=== PATIENT | female | born 1980 | race Hispanic/Latino ===

== ENCOUNTER 2017-11-14 08:53 | Emergency (ER) | payer SELFPAY ==
[2017-11-14 09:21] LABS: Bilirubin Negative (Negative); Blood, Urine Moderate (Negative); Clarity CLEAR (Clear); Glucose, Urine (Dipstick) Negative (Negative); Leukocyte Trace (Negative); Nitrite Negative (Negative); Protein, Urine (Dipstick) Negative (Neg-Trace); Specific Gravity, Urine 1.013 (1.002-1.036)
[2017-11-14 09:23] LABS: Bacteria/HPF None Seen HPF (None Seen); Hyaline Casts/LPF 0-3 HYALINE CAST LPF (0-3 Hyaline); Pathc Cast-AUWi Flag 0.14 (0-2.49); Pregnancy Test - Urine (BHCG) POSITIVE (Negative); Pregu Control Background? CLEAR/WHITE (CLR/WHITE); Pregu Control Bar Appear? YES (CONTROL BAR); RBC/HPF 0-3 HPF (0-3); Specific Gravity 1.013 (1.002-1.036); Squamous Epithelial 0-3 HPF (0-3); WBC/HPF 0-3 HPF (0-3)
[2017-11-14] MEDS ORDERED: Ondansetron ODT 4 MG TAB ONE (09:23)
[2017-11-14 09:33] LABS: #Lymphocytes 1.3 thou/uL (1.20-3.40); #Monocytes 0.4 thou/uL (0.11-0.59); #Neutrophils 4.8 thou/uL (1.40-6.50); %Basophils 0.1 % (0.0-1.0); %Eosinophils 0.6 % (0.0-10.0); %Lymphocytes 19.8 % (21.0-51.0); %Monocytes 6.6 % (0.0-10.0); %Neutrophils 72.9 % (42.0-75.0); Hemoglobin 13.4 g/dL (12.0-16.0); Mean Corpuscular HGB CONC 35.1 g/dL (32.0-36.0); Mean Corpuscular Volume 85.4 fL (78.0-98.0); Mean Platelet Volume 6.2 fL (7.4-10.4); Platelet Count 236 thou/uL (130-400); RBC Distribution Width 11.8 % (11.5-14.5); Red Blood Cell (RBC) Count 4.48 mill/uL (4.20-5.40); White Blood Cell (WBC) Count 6.6 thou/uL (4.8-10.8)
[2017-11-14 10:01] LABS: ALT (SGPT) 15 U/L (8-55); AST (SGOT) 11 U/L (5-34); Albumin 4.3 g/dL (3.5-5.0); Alkaline Phosphatase 52 U/L (40-150); Anion Gap 12 mmol/L (10-20); BUN (Urea Nitrogen) 8 mg/dL (7.0-18.7); Bilirubin, Total 0.5 mg/dL (0.2-1.2); Calc. Creatinine Clearance 0 mL/min (70-130); Calcium 9.8 mg/dL (7.8-10.44); Carbon Dioxide 23 mmol/L (22-29); Chloride 108 mmol/L (98-107); Estimated GFR-MDRD Greater than 90; Globulin 2.8 g/dL (2.4-3.5); Glucose 102 mg/dL (70-105); Lipase 29 U/L (8-78); Potassium 3.5 mmol/L (3.5-5.1); Protein, Total 7.1 g/dL (6.0-8.3); Sodium 139 mmol/L (136-145)
--- NOTE | 2017-11-14 10:52 | ULT ---
FIRST TRIMESTER OBSTETRICAL ULTRASOUND: Date: 11/14/17 INDICATION: with abdominal pain. FINDINGS: There is a single intrauterine gestation present with associated yolk sac. No pole is identifie d. The gestational sac measures 1.34 cm, giving an estimated gestational age of 6 weeks/1 day. The yo lk sac measured 3.4 mm. Uterus measured 11.0 x 5.6 x 6.0 cm. Left ovary is visualized and measures 3. 8 x 1.6 x 1.4 cm. Normal flow is seen to the left ovary. The right adnexa is not well seen. IMPRESSION: 1. Single intrauterine gestational sac and yolk sac identified. pole is not identified. Recomm end correlation with beta HCG and clinical follow-up. No evidence of a subchorionic hemorrhage is abiel ssly noted. No free fluid is demonstrated. 2. Average gestational age by ultrasound is 6 weeks and 1 day, with estimated date of delivery of . 3. Nonvisualization of the right ovary. Visualized uterus and left ovary appear normal. ADDENDUM: Additional transabdominal images were performed later, which demonstrated the right ovary measuring 2 .0 x 2.5 x 2.0 cm, with normal vascular flow. The left ovary measured 2.8 x 1.6 x 1.4 cm on this repe at evaluation. There is normal vascular flow to the left ovary. No free fluid is evident. The gestat ional sac is again noted. POS: [facility]
--- NOTE | 2017-11-14 12:33 | CON ---
DATE OF CONSULTATION: 11/14/2017 LOCATION: Emergency Room, bed 18. CONSULTING PHYSICIAN: Dr. Rivera CHIEF COMPLAINT: Abdominal pain. HISTORY OF PRESENT ILLNESS: This is a 37-year-old G6, P 4-0-1-4 at approximately 7 weeks gestation by her last menstrual period of 09/22/2017. The patient reports sudden onset of lower abdominal pain at 1:00 this morning. She reports the pain felt like "contractions." She has had some spotting for 3 days, but no heavy bleeding. She reports she found out she was yesterday. Her last baby was 9 years ago. She rates her pain a 5/10 and has taken tramadol for it, which did help. She also had some nausea and vomiting. She denies any UTI symptoms. REVIEW OF SYSTEMS: Negative for head, eyes, ears, nose, throat, cardiovascular , respiratory, GI, , neuro, psych, musculoskeletal, skin or constitutional symptoms other than mentioned above. PAST MEDICAL HISTORY: None. PAST SURGICAL HISTORY: None. OBSTETRICAL HISTORY: Four previous vaginal deliveries. The most recent 9 years ago. She previously saw the Clinic for care for those pregnancies, but has not seen anyone this . Denies any history of pelvic infections. MEDICATIONS: Tramadol as needed. ALLERGIES: No known drug allergies. SOCIAL HISTORY: Negative for tobacco, alcohol, or drug abuse. FAMILY HISTORY: Noncontributory. PHYSICAL EXAMINATION: VITAL SIGNS: Afebrile with normal vital signs. Pulse in the 80s. GENERAL: Awake, alert, in no acute distress, appears comfortable. CHEST: Nonlabored breathing. ABDOMEN: Soft, mildly tender to palpation of the lower abdomen. No rebound, no guarding, no masses palpable. LABORATORY DATA: WBC 6.6, hemoglobin 13.4, hematocrit 38.3, platelets 236,000, no left shift. Chemistries unremarkable. HCG 26,722. Urine unremarkable. IMAGING: Pelvic ultrasound was performed by Radiology revealing a single intrauterine gestation with a yolk sac, no pole identified at this time. Gestational sac measurements estimate the age to be 6 weeks 1 day. Both ovaries visualized with normal flow. No free fluid in the pelvis. ASSESSMENT AND PLAN: A 37-year-old G6, P4-0-1-4 with an intrauterine of approximately 6 weeks. There is no evidence of ectopic or ovarian torsion to account for her discomfort. With her spotting she may have a threatened miscarriage; however, no intervention is needed at this time. Comfort measures were discussed including Tylenol. She was encouraged to establish care as soon as possible. Precautions were given. She made be discharged home from an OB standpoint. TASIA
== END 2017-11-14 11:56 | disposition home or self-care (01) ==
LOC: ERS 08:53
DX: O20.0 Threatened abortion (principal); O99.611 Diseases of the digestive system complicating pregnancy, first trimester; K21.9 Gastro-esophageal reflux disease without esophagitis; O99.341 Other mental disorders complicating pregnancy, first trimester; F32.9 Major depressive disorder, single episode, unspecified; Z3A.01 Less than 8 weeks gestation of pregnancy
CPT/HCPCS: 36415; 76856; 80053; 81003; 81015; 81025; 83690; 84702; 85025; 86900; 86901; 96361; 96374; J2270; Q0162

== ENCOUNTER 2017-11-16 08:54 | Emergency (ER) | payer SELFPAY ==
[2017-11-16 09:46] LABS: #Eosinphils 0.1 thou/uL (0.0-0.7); #Lymphocytes 1.2 thou/uL (1.20-3.40); #Monocytes 0.5 thou/uL (0.11-0.59); #Neutrophils 4.5 thou/uL (1.40-6.50); %Basophils 0.2 % (0.0-1.0); %Eosinophils 1.3 % (0.0-10.0); %Lymphocytes 18.4 % (21.0-51.0); %Monocytes 8.2 % (0.0-10.0); %Neutrophils 71.9 % (42.0-75.0); Hemoglobin 12.5 g/dL (12.0-16.0); Mean Corpuscular Volume 85.7 fL (78.0-98.0); Platelet Count 215 thou/uL (130-400); RBC Distribution Width 11.5 % (11.5-14.5); Red Blood Cell (RBC) Count 4.18 mill/uL (4.20-5.40); White Blood Cell (WBC) Count 6.3 thou/uL (4.8-10.8)
[2017-11-16] MEDS ORDERED: HYDROcodone/Acetaminophen 10/325 mg Tablet ONE (09:51)
--- NOTE | 2017-11-16 11:05 | ULT ---
PELVIC/ ULTRASOUND, with Duplex Doppler color flow: CLINICAL HISTORY: Follow-up imaging for abdominal/pelvic pain and vaginal bleeding. patient. COMPARISON: Exam from two days prior. FINDINGS: There is an early live intrauterine gestation with cardiac activity documented at 118-122 beats per minute. Gestational sac, yolk sac, and pole are visualized. There is a moderate sized re gion of decreased echogenicity adjacent the gestational sac and endometrial region, indicating interv al development of subchorionic hemorrhage. The ovaries are grossly unremarkable. No significant free pelvic fluid is visualized. There has been development of a moderate sized subchorionic hemorrhage. In the interim, there has been development of cardiac activity and visualization of a feta pole . Recommend continued imaging followup to reassess the viability, as well as the subchorionic hemorrhage. CODE T POS: [facility]
== END 2017-11-16 11:57 | disposition home or self-care (01) ==
LOC: ERS 08:54
DX: O20.0 Threatened abortion (principal); O99.341 Other mental disorders complicating pregnancy, first trimester; O99.611 Diseases of the digestive system complicating pregnancy, first trimester; F32.9 Major depressive disorder, single episode, unspecified; K21.9 Gastro-esophageal reflux disease without esophagitis; Z3A.01 Less than 8 weeks gestation of pregnancy
CPT/HCPCS: 36415; 76856; 84702; 85025; 93976

== ENCOUNTER 2018-02-26 01:39 | Day surgery (SDC) | payer OTHER ==
[2018-02-26 02:30] VITALS: BP 99/53; TEMP 98.3
[2018-02-26] MEDS ORDERED: Ondansetron HCl/PF 4 MG/2 ML Vial IVP PRN (02:42)
[2018-02-26] MEDS ORDERED: Promethazine HCl 25 MG/ML VIAL IM PRN (02:42)
[2018-02-26] MEDS ORDERED: Lactated Ringer's 1,000 ML IV SCH ×2 (02:45)
[2018-02-26] MEDS ORDERED: Promethazine HCl 25 MG/ML VIAL ONE (02:58)
[2018-02-26] MEDS ORDERED: Ondansetron HCl/PF 4 MG/2 ML Vial ONE (02:58)
[2018-02-26 05:22] LABS: #Eosinphils 0.1 thou/uL (0.0-0.7); #Lymphocytes 1.3 thou/uL (1.20-3.40); #Monocytes 0.7 thou/uL (0.11-0.59); #Neutrophils 8.1 thou/uL (1.40-6.50); %Basophils 0.4 % (0.0-1.0); %Eosinophils 0.7 % (0.0-10.0); %Monocytes 6.4 % (0.0-10.0); %Neutrophils 79.5 % (42.0-75.0); Mean Corpuscular HGB CONC 34.4 g/dL (32.0-36.0); Mean Corpuscular Hemoglobin 31.4 pg (27.0-31.0); Mean Corpuscular Volume 91.3 fL (78.0-98.0); Mean Platelet Volume 6.5 fL (7.4-10.4); Platelet Count 295 thou/uL (130-400); RBC Distribution Width 11.3 % (11.5-14.5); White Blood Cell (WBC) Count 10.1 thou/uL (4.8-10.8)
[2018-02-26 05:40] LABS: Anion Gap 13 mmol/L (10-20); BUN (Urea Nitrogen) 9 mg/dL (7.0-18.7); Calc. Creatinine Clearance 0 mL/min (70-130); Calcium 9.4 mg/dL (7.8-10.44); Carbon Dioxide 25 mmol/L (22-29); Chloride 107 mmol/L (98-107); Estimated GFR-MDRD Greater than 90; Glucose 109 mg/dL (70-105); Potassium 4.5 mmol/L (3.5-5.1); Sodium 140 mmol/L (136-145)
[2018-02-26 05:42] LABS: Bilirubin Negative (Negative); Blood, Urine Trace (Negative); Clarity CLEAR (Clear); Glucose, Urine (Dipstick) Negative (Negative); Leukocyte Negative (Negative); Nitrite Negative (Negative); Protein, Urine (Dipstick) Negative (Neg-Trace); Specific Gravity, Urine 1.003 (1.002-1.036); Urobilinogen 0.2 mg/dL (0.2-1.0)
[2018-02-26 05:45] LABS: Bacteria/HPF None Seen HPF (None Seen); Hyaline Casts/LPF 0-3 HYALINE CAST LPF (0-3 Hyaline); Pathc Cast-AUWi Flag 0.14 (0-2.49); RBC/HPF None Seen HPF (0-3); Squamous Epithelial 0-3 HPF (0-3); WBC/HPF None Seen HPF (0-3)
--- NOTE | 2018-02-26 06:29 | PRG ---
DATE OF SERVICE: 02/26/2018 TIME OF SERVICE: 06 PRESENTING COMPLAINT: Nausea and vomiting at 20 weeks gestation. HISTORY OF PRESENT ILLNESS: Ms. Quintero sees Dr. Dom oCllazo at [facility]. The patient is a AB1, x4. Antepartum record is not available on the unit. The patient reports a sudd en onset of nausea and vomiting last night. She denies hematemesis. She denies rupture of membranes . She denies history of cholelithiasis. OB [employer]IST HISTORY: As noted in the HPI. Blood type is O positive. Other OB labs are not available . PAST MEDICAL HISTORY: None. PAST SURGICAL HISTORY: None. ALLERGIES: Denies. MEDICATIONS: vitamins. SOCIAL HISTORY: Denies tobacco, alcohol, or drug use. FAMILY HISTORY/REVIEW OF SYSTEMS: Noncontributory. PHYSICAL EXAMINATION: GENERAL: The patient is now resting comfortably after IV hydration and Phenergan. She reports compl ete resolution of her nausea and vomiting. VITAL SIGNS: Temperature 98.7, respirations 18, blood pressure was 118/72, pulse 85. HEENT: Within normal limits. LUNGS: Clear to auscultation bilaterally. HEART: Regular rate and rhythm. ABDOMEN: Soft and nontender. Fundal height 20 cm. FHTs 150s. PELVIC: Deferred. No CVA tenderness. EXTREMITIES: Without clubbing, cyanosis, or edema. LABORATORY DATA: Reveals a hematocrit of 31.9%, normal white count, normal platelet count. Metaboli c panel reveals normal electrolytes with a creatinine 0.61. IMPRESSION: Nausea and vomiting. Uncertain etiology, in the second trimester now resolved with IV fluids and antiemetics. PLAN: 1. Discharge home. 2. Encourage the patient to keep scheduled followup as she missed a scheduled anatomic survey on , keep scheduled followup with Dr. Collazo. ER precautions for return of nausea and vomiting.
[2018-02-26] MEDS ORDERED: Prenatal Vitamin 1 TAB PO SCH (09:00)
== END 2018-02-26 06:22 | disposition home health service (06) ==
LOC: L&D/OP 01:39
PROVIDERS: ATTEND Family Medicine
DX: O99.89 Other specified diseases and conditions complicating pregnancy, childbirth and the puerperium (principal); R11.2 Nausea with vomiting, unspecified; Z3A.20 20 weeks gestation of pregnancy
CPT/HCPCS: 36415; 80048; 81003; 81015; 85025; 96360; 96361; 96372; 96375; 99283; J2405; J2550

== ENCOUNTER 2018-06-19 11:28 | Inpatient (IN) | payer MEDICAID, OTHER, SELFPAY ==
[2018-06-19] MEDS ORDERED: Bupivacaine HCl 0.5%/Epinephrine 1:200,000/PF 30 ml Vial ONE (15:00)
[2018-06-19] MEDS ORDERED: Lidocaine 2% MPF 10 ML AMP (For Epidural Use) ONE (15:00)
[2018-06-19] MEDS ORDERED: Butorphanol Tartrate 1 MG/ML VIAL SLOW IVP PRN (23:12)
[2018-06-19] MEDS ORDERED: Lidocaine 1% (PF) 30 ML VIAL SC PRN (23:12)
[2018-06-19] MEDS ORDERED: Ondansetron PF 4 MG/2 ML Vial IVP PRN (23:12)
[2018-06-19] MEDS ORDERED: Methylergonovine 0.2 MG/ML VIAL IM PRN (23:12)
[2018-06-19] MEDS ORDERED: Ibuprofen 800 MG TAB PO PRN (23:12)
[2018-06-19] MEDS ORDERED: Misoprostol 200 MCG TAB PR PRN (23:12)
[2018-06-19] MEDS ORDERED: HYDROcodone/Acetaminophen 5/325 mg Tablet PO PRN (23:12)
[2018-06-19] MEDS ORDERED: Diphenoxylate HCl/Atropine Tablet PO PRN (23:12)
[2018-06-19] MEDS ORDERED: NS / Oxytocin 40 units/1000ml 1,000 ML IV PRN (23:12)
[2018-06-19] MEDS ORDERED: NS w/ Oxytocin 10 units 500 ML IV SCH ×2 (23:12)
[2018-06-19] MEDS ORDERED: Carboprost 250 MCG/ML AMP IM PRN (23:12)
[2018-06-19 23:25] VITALS: BMI 35.9
[2018-06-19] MEDS: Lactated Ringer's 1,000 ML IV SCH (23:35)
[2018-06-19 23:46] LABS: Hemoglobin 8.6 g/dL (12.0-16.0); Mean Corpuscular HGB CONC 31.8 g/dL (32.0-36.0); Mean Corpuscular Hemoglobin 22.8 pg (27.0-31.0); Mean Corpuscular Volume 71.8 fL (78.0-98.0); Mean Platelet Volume 8.4 fL (7.4-10.4); Platelet Count 250 thou/uL (130-400); RBC Distribution Width 15.2 % (11.5-14.5); Red Blood Cell (RBC) Count 3.75 mill/uL (4.20-5.40); White Blood Cell (WBC) Count 6.2 thou/uL (4.8-10.8)
[2018-06-20] MEDS: Lactated Ringer's 1,000 ML IV SCH ×2 (00:17→12:08)
[2018-06-20] MEDS: Misoprostol 100 MCG TAB PO SCH ×2 (00:19→04:40)
[2018-06-20 00:21] LABS: Syphilis Antibody Nonreactive (Nonreactive); Syphilis Antibody Index 0.06 S/CO (<1.00 Non-Reactive)
[2018-06-20 00:33] LABS: Hep B Surf Ag Non-Reactive S/CO (NonReactive)
[2018-06-20] MEDS ORDERED: NS w/ Oxytocin 10 units 500 ML ONE (08:21)
[2018-06-20] MEDS ORDERED: Fentanyl 4 mcg/Bup 0.1% Cadd 100 ML ONE (09:58)
[2018-06-20] MEDS ORDERED: Lidocaine 1.5%/Epinephrine 1:200,000 5 ML AMPUL IJ ONE (10:05)
[2018-06-20] MEDS ORDERED: Eucerin (Mineral Oil/Petrolatum,White) 30 gm Jar TOP PRN (11:24)
[2018-06-20] MEDS ORDERED: diphenhydrAMINE 50 MG/ML VIAL IVP PRN (11:24)
[2018-06-20] MEDS ORDERED: Ondansetron PF 4 MG/2 ML Vial IVP PRN ×2 (11:24→19:36)
[2018-06-20] MEDS ORDERED: Lactated Ringer's 500 ML IV PRN (11:24)
[2018-06-20] MEDS ORDERED: ePHEDrine/0.9% NaCl/PF SYRINGE 50 mg/10 ml SLOW IVP PRN (11:24)
[2018-06-20] MEDS ORDERED: Acetaminophen 325 MG TAB PO PRN (11:24)
[2018-06-20] MEDS ORDERED: Naloxone HCl 0.4 mg/ml Vial IVP PRN ×2 (11:24)
[2018-06-20] MEDS ORDERED: Promethazine HCl 25 MG/ML VIAL IM PRN (11:24)
[2018-06-20] MEDS ORDERED: Fentanyl 4 mcg/Bupivacaine 0.1% Cassette 100 ML EPIDURAL SCH (11:30)
[2018-06-20] MEDS ORDERED: Communication Order-Pharmacy FS SCH (11:30)
[2018-06-20] MEDS ORDERED: NS / Oxytocin 40 units/1000ml 1,000 ML ONE (15:43)
[2018-06-20] MEDS ORDERED: Lidocaine 1% (PF) 30 ML VIAL ONE (15:43)
[2018-06-20] MEDS ORDERED: cloNIDine 0.1 MG TAB PO SCH (17:00)
[2018-06-20 17:07] LABS: Analyzer IN Cardio OR; Base Excess (BEa) -3.1 mEq/L (-2.0 to +3.0)
[2018-06-20 17:08] LABS: Actual Bicarbonate (HCO3a) 25.2 mEq/L (22-28)
[2018-06-20] MEDS ORDERED: Benzocaine/Menthol 20-0.5% 60 ML CAN TOP PRN (19:36)
[2018-06-20] MEDS ORDERED: NS / Oxytocin 40 units/1000ml 1,000 ML IV SCH (19:36)
[2018-06-20] MEDS ORDERED: Milk Of Magnesia 30 ML UDCUP PO PRN (19:36)
[2018-06-20] MEDS ORDERED: Preparation H Ointment 28 GM TUBE PR PRN (19:36)
[2018-06-20] MEDS ORDERED: diphenhydrAMINE 25 MG CAP PO PRN (19:36)
[2018-06-20] MEDS ORDERED: HYDROcodone/Acetaminophen 5/325 mg Tablet PO PRN (19:36)
[2018-06-20] MEDS ORDERED: Lanolin Ointment 7 GM TUBE TOP PRN (19:36)
[2018-06-20] MEDS ORDERED: Bisacodyl 10 MG SUPP PR PRN (19:36)
[2018-06-20] MEDS ORDERED: Ferrous Sulfate 325 MG TAB PO SCH (20:00)
[2018-06-20] MEDS ORDERED: cloNIDine 0.1 MG TAB PO PRN (20:16)
[2018-06-20] MEDS: Ibuprofen 800 MG TAB PO SCH (20:26)
[2018-06-20] MEDS: Docusate Calcium (SURFAK) 240 MG CAP PO SCH (20:26)
[2018-06-20] MEDS: Ferrous Sulfate 325 MG TAB PO SCH (20:27)
[2018-06-20] MEDS ORDERED: Adacel (T-DAP) 0.5 ML SYRINGE IM ONE (21:00)
[2018-06-21] MEDS: Ibuprofen 800 MG TAB PO SCH ×3 (03:56→22:08)
[2018-06-21 08:09] LABS: Hemoglobin 7.3 g/dL (12.0-16.0); Mean Corpuscular Hemoglobin 22.4 pg (27.0-31.0); Mean Corpuscular Volume 72.2 fL (78.0-98.0); Mean Platelet Volume 8.5 fL (7.4-10.4); Platelet Count 241 thou/uL (130-400); RBC Distribution Width 14.8 % (11.5-14.5); Red Blood Cell (RBC) Count 3.25 mill/uL (4.20-5.40); White Blood Cell (WBC) Count 10.1 thou/uL (4.8-10.8)
[2018-06-21] MEDS: Docusate Calcium (SURFAK) 240 MG CAP PO SCH ×2 (09:57→22:08)
[2018-06-21] MEDS: Ferrous Sulfate 325 MG TAB PO SCH ×2 (09:57→18:14)
[2018-06-21] MEDS: Prenatal Vitamin 1 TAB PO SCH (09:57)
[2018-06-21] MEDS: HYDROcodone/Acetaminophen 5/325 mg Tablet PO PRN ×2 (09:59→15:05)
[2018-06-22] MEDS: Ibuprofen 800 MG TAB PO SCH ×2 (06:32→13:18)
[2018-06-22 08:53] VITALS: BP 126/61; TEMP 97.8
[2018-06-22] MEDS: Ferrous Sulfate 325 MG TAB PO SCH ×2 (09:13→17:48)
[2018-06-22] MEDS: Docusate Calcium (SURFAK) 240 MG CAP PO SCH (09:13)
[2018-06-22] MEDS: Prenatal Vitamin 1 TAB PO SCH (09:13)
[2018-06-22] MEDS: HYDROcodone/Acetaminophen 5/325 mg Tablet PO PRN (09:14)
[2018-06-22] MEDS ORDERED: Measles/Mumps/Rubella 10 MCG/0.5 ML VIAL SC ONE (18:00)
== END 2018-06-22 18:50 | disposition home or self-care (01) | DRG 807 ==
LOC: L&D 22:52 → 3SW 06-20 19:53
PROVIDERS: ADMIT Family Medicine; ATTEND Family Medicine
PROC: 10E0XZZ Delivery of Products of Conception, External Approach (ICD-10-PCS; principal; 2018-06-20)
PROC: 10907ZC Drainage of Amniotic Fluid, Therapeutic from Products of Conception, Via Natural or Artificial Opening (ICD-10-PCS; 2018-06-20)
PROC: 3E0P7VZ Introduction of Hormone into Female Reproductive, Via Natural or Artificial Opening (ICD-10-PCS; 2018-06-20)
PROC: 3E033VJ Introduction of Other Hormone into Peripheral Vein, Percutaneous Approach (ICD-10-PCS; 2018-06-20)
PROC: 3E0134Z Introduction of Serum, Toxoid and Vaccine into Subcutaneous Tissue, Percutaneous Approach (ICD-10-PCS; 2018-06-22)
DX: O99.344 Other mental disorders complicating childbirth (principal); Z37.0 Single live birth; F32.9 Major depressive disorder, single episode, unspecified; O66.0 Obstructed labor due to shoulder dystocia; O69.81X0 Labor and delivery complicated by cord around neck, without compression, not applicable or unspecified; O76 Abnormality in fetal heart rate and rhythm complicating labor and delivery; O70.1 Second degree perineal laceration during delivery; Z3A.39 39 weeks gestation of pregnancy; Z23 Encounter for immunization
CPT/HCPCS: 36415; 51702; 82805; 85027; 86780; 86850; 86900; 86901; 87340; 90707; J0670; J2001; J3490

== ENCOUNTER 2023-06-25 18:30 | Emergency (ER) | payer SELFPAY ==
[2023-06-25] MEDS ORDERED: Cyclobenzaprine 10 MG TAB ONE (20:04)
[2023-06-25] MEDS ORDERED: Ketorolac Tromethamine 30 MG (1 mL) VIAL ONE (20:04)
[2023-06-25 20:24] LABS: Bacteria/HPF None Seen HPF (None Seen); Bilirubin Negative (Negative); Blood, Urine Negative (Negative); CAUTI Indications for Culture Pelvic or flank pain; Clarity Clear (Clear); Glucose, Urine (Dipstick) Normal (Negative); Ketone, Urine Negative (Negative); Leukocyte Negative Leu/uL (Negative); Nitrite Negative (Negative); Protein, Urine (Dipstick) Negative (Neg-Trace); RBC/HPF 0-3 HPF (0-3); Specific Gravity, Urine 1.029 (1.002-1.036); Squamous Epithelial 0-3 HPF (0-3); Urobilinogen Normal mg/dL (Less than 2); WBC/HPF 0-3 HPF (0-3); pH, Urine 6.5 (5.0-9.0)
[2023-06-25 20:25] LABS: Pregnancy Test - Urine (BHCG) Negative (Negative); Pregu Control Background? CLEAR/WHITE (CLR/WHITE); Pregu Control Bar Appear? YES (CONTROL BAR); Specific Gravity 1.029 (1.002-1.036)
[2023-06-25 20:26] LABS: Urine Culture Reflex No No
== END 2023-06-25 22:18 | disposition home or self-care (01) ==
LOC: ERS 18:30
DX: S46.912A Strain of unspecified muscle, fascia and tendon at shoulder and upper arm level, left arm, initial encounter (principal); M54.50 Low back pain, unspecified; X50.9XXA Other and unspecified overexertion or strenuous movements or postures, initial encounter; Z75.8 Other problems related to medical facilities and other health care
CPT/HCPCS: 81001; 81025; 96372; 99283; J1885